=== PATIENT | male | born 1960 | race Caucasian/White ===

== ENCOUNTER 2020-05-08 23:59 | Emergency (ER) | payer SELFPAY ==
[~2020-05-08] VITALS: Ht 180.3 cm; Wt 106.6 kg
[2020-05-09 02:11] LABS: Basophils # (auto) 0 10 ^3/uL (0-0.2); Eosinophils # (auto) 0 10 ^3/uL (0-0.8); Eosinophils % (auto) 0.1 % (0.0-7.0); White Blood Cell 12.7 10^3/uL (4.4-10.8)
[2020-05-09 02:13] LABS: Basophils % (auto) 0.2 % (0.0-2.0); Hematocrit 50.8 % (41.0-53.0); Hemoglobin 17.9 g/dL (13.5-17.5); Lymphocytes % (auto) 7.6 % (10.0-50.0); Mean Corpuscular Hemoglobin 34.3 pg (28.0-32.0); Mean Corpuscular Hgb Conc. 35.2 g/dL (32.0-36.0); Mean Corpuscular Volume 97.5 fL (80.0-100.0); Monocytes # (auto) 0.9 10 ^3/uL (0-1.3); Monocytes % (auto) 7.4 % (0.0-12.0); Neutrophils # (auto) 10.8 10 ^3/uL (1.6-8.6); Neutrophils % (auto) 84.7 % (37.0-80.0); Nucleated Red Blood Cells % 0.4 %; Platelet Count (auto) 125 10^3/uL (140-450); Red Blood Cells 5.21 10^6/uL (4.5-5.90); Red Cell Distribution Width 14.5 % (11.8-14.3)
[2020-05-09 02:25] LABS: INR 0.97 (0.9-1.15); Partial Thromboplastin Time 23.1 sec (23.0-31.2)
[2020-05-09 02:40] LABS: Albumin 4.4 g/dL (3.4-5.0); BUN/Creatinine Ratio 10.6; Calcium 8.9 mg/dL (8.5-10.1); Potassium 3.7 mmol/L (3.5-5.1)
[2020-05-09 02:42] LABS: Bilirubin, Total 0.6 mg/dL (0.2-1.0); Total Protein 8.7 g/dL (6.4-8.2)
[2020-05-09] MEDS ORDERED: MORPHINE SULFATE 4 MG/ML SYR/VIAL IV ONE (04:15)
[2020-05-09] MEDS ORDERED: ONDANSETRON HCL 4 MG/2 ML VIAL IV ONE (04:15)
[2020-05-09 07:02] VITALS: BP 106/67
== END 2020-05-09 07:36 | disposition short-term general hospital (02) ==
LOC: ER 05-09 00:02
DX: S22.089A Unspecified fracture of T11-T12 vertebra, initial encounter for closed fracture (principal); M48.04 Spinal stenosis, thoracic region; X58.XXXA Exposure to other specified factors, initial encounter; Y93.89 Activity, other specified; Y92.89 Other specified places as the place of occurrence of the external cause; Y99.8 Other external cause status
CPT/HCPCS: 36415; 70450; 71045; 72100; 72125; 72128; 80053; 80320; 85025; 85610; 85730; 96374; 96375; 99285; J2270; J2405